=== PATIENT | female | born 1970 | race Caucasian/White ===

== ENCOUNTER → 2017-07-05 | Outpatient (CLI) | payer BC, OTHER | LOC: RAD 09:08 | DX: Z12.31 Encounter for screening mammogram for malignant neoplasm of breast (principal) ==

== ENCOUNTER → 2019-01-18 | Outpatient (CLI) | payer BC, OTHER | LOC: RAD 14:11 | DX: Z12.31 Encounter for screening mammogram for malignant neoplasm of breast (principal) ==

== ENCOUNTER → 2020-08-28 | Outpatient (CLI) | payer BC, OTHER | LOC: RAD 15:30 | PROVIDERS: ATTEND Obstetrics & Gynecology | DX: Z12.31 Encounter for screening mammogram for malignant neoplasm of breast (principal) ==

== ENCOUNTER → 2021-09-01 | Outpatient (CLI) | payer BC, OTHER | LOC: BC 11:11 | PROVIDERS: ATTEND Obstetrics & Gynecology | DX: Z12.31 Encounter for screening mammogram for malignant neoplasm of breast (principal); N64.89 Other specified disorders of breast ==

== ENCOUNTER → 2021-09-03 | Outpatient (CLI) | payer BC, OTHER | LOC: ULTRA 13:42 → BC 13:42 | PROVIDERS: ATTEND Obstetrics & Gynecology | DX: N60.02 Solitary cyst of left breast (principal) ==

== ENCOUNTER → 2021-09-15 | Outpatient (CLI) | payer BC, OTHER ==
--- NOTE | 2021-09-17 17:06 | PATH ---
[facility] [address] [place] [address] PATHOLOGY RPT PROCEDURE Name: MARISOL DAVIDSON Room #: REG [facility]..#: [id number] Admission: 09/15/21 Date of : 70 Discharge: Report #: [id number] Path Case #: [id number] [facility] Accession Number: [id number] . 01 Material submitted: . breast - LEFT BREAST STEREOTACTIC BIOPSY. Modifiers: left . 02 Diagnosis: Breast, left breast medial calcifications, stereotactic needle core biopsy: - Proliferative fibrocystic changes with markedly dilated ducts, extensive columnar cell change as well as columnar cell hyperplasia associated with coarse calcifications along with adenosis. - Negative for atypia or malignancy. ([facility]ata; 09/16/2021) QMS 09/16/2021 1438 Local . 02 Comment: Dr. Jose Hicks has seen correspondence representative slides of this case and concurs with the diagnosis. ([facility]; 09/16/2021) . 02 Electronically signed: . Chelsie Agrawal MD, Pathologist NPI- [id number] . 01 Gross description: . The specimen is received in formalin, labeled "Marisol Davidson, left". The source is additionally listed on the requisition as "left breast calcifications". Received are multiple needle cores of yellow fernandez fibrofatty breast tissue measuring 4.6 x 1.2 x 0.4 cm in aggregate dimensions. Also received is a plastic cassette containing a single core of yellow-fernandez fibrofatty tissue measuring 3.7 x 2.4 x 0.4 cm in maximum dimensions. The tissue in the cassette is transferred to cassette A1 and the remaining tissue is submitted in its entirety in cassette A2-A3. The specimen is collected at 1405 and placed into formalin at 1408 on 09/15/2021. The specimen is removed from formalin at 2240 on 09/15/21. The total formalin fixation time is 8 hours and 35 minutes. ([facility]; 09/15/2021) NRI/NRI 09/15/2021 214 Local . 02 Pathologist provided ICD-10: N60.12, N62, N60.22 . 02 CPT . 739626 Specimen Comment: A courtesy copy of this report has been sent to [phone] [address] PATHOLOGY RPT PROCEDURE Name: MARISOL DAVIDSON Room #: REG [facility] Calderon#: [id number] Admission: 09/15/21 Date of : 70 Discharge: Report #: [id number] Path Case #: [id number] Specimen Comment: Report sent to Performed at: [address], [place], [place] [id number] MD Mg Espinosa MD Phone: [phone] Performed at: [address] [id number] MD Chelsie Agrawal MD Phone: [phone]
== END | disposition home or self-care (01) ==
LOC: BC 13:19
PROVIDERS: ATTEND Obstetrics & Gynecology
DX: R92.1 Mammographic calcification found on diagnostic imaging of breast (principal); N60.12 Diffuse cystic mastopathy of left breast; N62 Hypertrophy of breast; N60.22 Fibroadenosis of left breast